=== PATIENT | female | born 1990 | race Asian ===

== ENCOUNTER 2017-11-02 16:59 | Emergency (ER) | payer OTHER ==
--- NOTE | 2017-11-02 17:24 | PDOC ---
Rapid Medical Evaluation Time Seen by Provider: 11/02/17 17:20 Medical Evaluation: Allergies Allergy/AdvReac Type Severity Reaction Status Date / Time No Known Allergies Allergy Verified 04/10/15 21:59 11/02/17 17:20 I have performed a brief in-person evaluation of this patient. The patient presents with a chief complaint of: lower abdomen and lower back pain x 10/29/17. Reports being diagnosed with uti, but has not yet started the antibiotics. , 17 weeks . No vaginal bleeding or discharge Pertinent physical exam findings are NAD even and unlabored breathing no cva tenderness I have ordered the following: urinalysis The patient will proceed to Ed for further evaluation
[2017-11-02 17:29] VITALS: BP 94/49; PULSE 78; TEMP 98.2; BMI 22.3
[2017-11-02 18:03] LABS: BASO % 0.2 % (0-2.0); EOS % 1.5 % (0-4.5); HEMATOCRIT 32.1 % (32.4-45.2); HEMOGLOBIN 10.6 GM/dL (10.7-15.3); LYMPH % 20.9 % (8-40); MCH 27.3 pg (25.7-33.7); MCHC 33.2 g/dl (32.0-36.0); MEAN CELL VOLUME 82.3 fl (80-96); MEAN PLT VOLUME 8.3 fl (7.5-11.1); MONO % 7.6 % (3.8-10.2); NEUT % 69.8 % (42.8-82.8); PLATELET COUNT 236 K/MM3 (134-434); RBC 3.89 M/mm3 (3.60-5.2); RDW 13.9 % (11.6-15.6)
[2017-11-02 18:08] LABS: URINE APPEARANCE CLEAR; URINE BILIRUBIN NEGATIVE (<2.0 mg/dL); URINE COLOR DKYELLOW; URINE GLUCOSE (UA) NEGATIVE (NEGATIVE); URINE KETONE NEGATIVE (NEGATIVE); URINE LEUK ESTERASE 1+ (NEGATIVE); URINE NITRITE NEGATIVE (NEGATIVE); URINE PROTEIN NEGATIVE (NEGATIVE); URINE UROBILINOGEN NEGATIVE mg/dL (0.2-1.0)
[2017-11-02 18:11] LABS: EPI CELLS FEW /HPF (FEW); URINE BACTERIA RARE /hpf (NONE SEEN); URINE MUCUS FEW
--- NOTE | 2017-11-02 18:40 | PDOC ---
History of Present Illness - General Chief Complaint: Pain Stated Complaint: STOMACH/BACK PAIN/16 WKS Time Seen by Provider: 11/02/17 17:20 - History of Present Illness Initial Comments: 11/02/17 18:40 I have performed a brief in-person evaluation of this patient. The patient presents with a chief complaint of: lower abdomen and lower back pain x 10/29/17. Reports being diagnosed with uti, but has not yet started the antibiotics. , 17 weeks . No vaginal bleeding or discharge Pertinent physical exam findings are NAD even and unlabored breathing no cva tenderness I have ordered the following: urinalysis The patient will proceed to Ed for further evaluation Past History - Past Medical History Allergies/Adverse Reactions: Allergies Allergy/AdvReac Type Severity Reaction Status Date / Time No Known Allergies Allergy Verified 11/02/17 17:22 Asthma: No Cancer: No Cardiac Disorders: No COPD: No Diabetes: No HTN: No Kidney Stones: Yes Seizures: No Thyroid Disease: No - Reproductive History (#): 1 Para: 0 Therapeutic (s) & number: No Spontaneous : 0 - Immunization History Immunization Up to Date: No - Suicide/Smoking/Psychosocial Hx Smoking History: Never smoked Have you smoked in the past 12 months: No Hx Alcohol Use: No Drug/Substance Use Hx: No Substance Use Type: None Hx Substance Use Treatment: No *Physical Exam - Vital Signs Last Vital Signs Temp Pulse Resp BP Pulse Ox 98.2 F 78 16 94/49 100 11/02/17 17:23 11/02/17 17:23 11/02/17 17:23 11/02/17 17:23 11/02/17 17:23 ED Treatment Course - LABORATORY CBC & Chemistry Diagram: 11/02/17 17:47 - ADDITIONAL ORDERS Additional order review: Laboratory Results 11/02/17 17:40 Urine Color Dkyellow Urine Appearance Clear Urine pH 5.0 Ur Specific [place] 1.025 Urine Protein Negative Urine Glucose (UA) Negative Urine Ketones Negative Urine Blood Negative Urine Nitrite Negative Urine Bilirubin Negative Urine Urobilinogen Negative Ur Leukocyte Esterase 1+ H Urine WBC (Auto) 8 Urine RBC (Auto) 2 Ur Epithelial Cells Few Urine Bacteria Rare Urine Mucus Few 11/02/17 17:47 RBC 3.89 MCV 82.3 MCHC 33.2 RDW 13.9 MPV 8.3 Neutrophils % 69.8 Lymphocytes % 20.9 D Monocytes % 7.6 Eosinophils % 1.5 D Basophils % 0.2 *DC/Admit/Observation/Transfer - Referrals Referrals: Naldo Hernandez MD [Primary Care Provider] - - Patient Instructions - Post Discharge Activity
--- NOTE | 2017-11-02 18:41 | PDOC ---
History of Present Illness - General Chief Complaint: Pain Stated Complaint: STOMACH/BACK PAIN/16 WKS Time Seen by Provider: 11/02/17 17:20 - History of Present Illness Initial Comments: 27 year old (17 weeks by US) presenting with lower abdominal cramping and lower back pain. She was carrying her child around on 10/27 and 15 then noticed some lower back pain the next day. The pain is sharp, lower and bilateral ; better with tylenol, pressure, and OTC pain patches. Her lower abdominal pain is a pulling sensation 5-6/100 at worse and started around while she was in [place] (10/09-10/23). The pain is not worse with sex or urination. Both her back and abdominal pains are worse with cough. She admits to a light cough for the past four days with generalized warmth but no objective temperature measurements at home. She does have positive sick contacts at home (everyone with similar quality and duration of cough). She has dailynausea and occasional vomiting since the start of this . Of note, she was called by her ObGyn ([facility]) and told she had a UTI from before her trip to [facility] but did not receive the message until recently so she hasn't recieved treatment just yet. Denies chest pain, SOB, diarrhea, constipation, headache, or other symptoms. 11/02/17 19:41 Past History - Past Medical History Allergies/Adverse Reactions: Allergies Allergy/AdvReac Type Severity Reaction Status Date / Time No Known Allergies Allergy Verified 11/02/17 17:22 Home Medications: Ambulatory Orders Nitrofurantoin Monohyd/M-Cryst [Macrobid -] 100 mg PO BID 5 Days #10 capsule Asthma: No Cancer: No Cardiac Disorders: No COPD: No Diabetes: No HTN: No Kidney Stones: Yes Seizures: No Thyroid Disease: No - Reproductive History (#): 1 Para: 0 Therapeutic (s) & number: No Spontaneous : 0 - Immunization History Immunization Up to Date: No - Suicide/Smoking/Psychosocial Hx Smoking History: Never smoked Have you smoked in the past 12 months: No Hx Alcohol Use: No Drug/Substance Use Hx: No Substance Use Type: None Hx Substance Use Treatment: No Review of Systems - Review of Systems Constitutional: Yes: Fever. No: Chills, Diaphoresis HEENTM: No: Recent change in vision, Double Vision Respiratory: Yes: Cough. No: Shortness of Breath, SOB at Rest Cardiac (ROS): No: Chest Pain, Edema, Lightheadedness ABD/GI: Yes: Nausea. No: Diarrhea, Poor Appetite, Vomiting : No: Burning, Dysuria, Discharge, Frequency, Hematuria Musculoskeletal: Yes: Back Pain Integumentary: No: Bruising, Change in Color, Lesions, Lumps Neurological: No: Headache, Numbness, Paresthesia Psychiatric: No: Anxiety, Depression Hematologic/Lymphatic: No: Anemia, Blood Clots *Physical Exam - Vital Signs Last Vital Signs Temp Pulse Resp BP Pulse Ox 98.2 F 78 16 94/49 100 11/02/17 17:23 11/02/17 17:23 11/02/17 17:23 11/02/17 17:23 11/02/17 17:23 - Physical Exam General Appearance: Yes: Nourished, Appropriately Dressed. No: Apparent Distress HEENT: positive: EOMI, XAVIER, Normal ENT Inspection, Normal Voice Neck: positive: Trachea midline, Normal Thyroid, Supple. negative: Tender, Rigid Respiratory/Chest: positive: Lungs Clear, Normal Breath Sounds. negative: Chest Tender, Respiratory Distress, Accessory Muscle Use Cardiovascular: positive: Regular Rhythm, Regular Rate Female Pelvic Exam: positive: normal external exam, cervical os closed, normal adnexa, normal size ovaries. negative: CMT, discharge, lesions Gastrointestinal/Abdominal: positive: Normal Bowel Sounds, Tender (slight pelvic tenderenss to deep palpation), Soft, Protuberent. negative: Flat, Distended, Guarding Lymphatic: negative: Adenopathy, Tenderness Musculoskeletal: positive: Normal Inspection. negative: CVA Tenderness Extremity: positive: Normal Capillary Refill, Normal Inspection, Normal Range of Motion, Pelvis Stable. negative: Tender Integumentary: positive: Normal Color, Dry, Warm Neurologic: positive: warper fixer II-XII NML intact, Fully Oriented, Alert, Normal Mood/ Affect, Normal Response, Motor Strength 5/5 ED Treatment Course - LABORATORY CBC & Chemistry Diagram: 11/02/17 17:47 - ADDITIONAL ORDERS Additional order review: Laboratory Results 11/02/17 17:40 Urine Color Dkyellow Urine Appearance Clear Urine pH 5.0 Ur Specific [place] 1.025 Urine Protein Negative Urine Glucose (UA) Negative Urine Ketones Negative Urine Blood Negative Urine Nitrite Negative Urine Bilirubin Negative Urine Urobilinogen Negative Ur Leukocyte Esterase 1+ H Urine WBC (Auto) 8 Urine RBC (Auto) 2 Ur Epithelial Cells Few Urine Bacteria Rare Urine Mucus Few 11/02/17 17:47 RBC 3.89 MCV 82.3 MCHC 33.2 RDW 13.9 MPV 8.3 Neutrophils % 69.8 Lymphocytes % 20.9 D Monocytes % 7.6 Eosinophils % 1.5 D Basophils % 0.2 Medical Decision Making - Medical Decision Making 27 year old female 17 weeks and history of nephrolithiasis presenting with lower back pain and lower abdominal pain for the past 2 weeks. Labs WNL with UA showing 8 WBC with 1+ leuk esterase. US showing viable 19 week IUP with HR 150 and bilateral nephrolithiasis (non-obstructing). Given acetaminophen and one dose of macrobid in ED. Will DC with macrobid 100 BID for 5 days. 11/02/17 22:44 *DC/Admit/Observation/Transfer Diagnosis at time of Disposition: Nephrolithiasis UTI (urinary tract infection) Qualifiers: Urinary tract infection type: site unspecified Hematuria presence: without hematuria Qualified Code(s): N39.0 - Urinary tract infection, site not specified Abdominal pain Qualifiers: Abdominal location: lower abdomen, unspecified Qualified Code(s): R10.30 - Lower abdominal pain, unspecified Back pain Qualifiers: Back pain location: low back pain Chronicity: acute Back pain laterality: bilateral Sciatica presence: without sciatica Qualified Code(s): M54.5 - Low back pain - Discharge Dispostion Disposition: HOME Condition at time of disposition: Improved Decision to Admit order: No - Prescriptions Prescriptions: Nitrofurantoin Monohyd/M-Cryst [Macrobid -] 100 mg PO BID 5 Days #10 capsule - Referrals Referrals: Naldo Hernandez MD [Primary Care Provider] - Jared Tapia MD [Staff Physician] - - Patient Instructions Printed Discharge Instructions: DI for Low Back Pain, DI for Urinary Tract Infection (UTI), DI for Kidney Stones Additional Instructions: You have an infection n your urine and stones in your kidneys. Please take your antibiotics twice a day with food for five days. Please return to the ED if you have worsening fevers, worsening pain, or cannot tolerate your medication. Also return if you have any new or worsening symptoms. Please follow up with your ObFlacaYn ([facility]) on Monday. - Post Discharge Activity
[2017-11-02] MEDS ORDERED: ACETAMINOPHEN 325 MG TABLET (FP) PO ONE (20:34)
[2017-11-02] MEDS ORDERED: ACETAMINOPHEN 325 MG TABLET (FP) ONE (20:49)
[2017-11-02] MEDS ORDERED: NITROFURANTOIN MACROCRYSTAL 50 MG CAPSULE (FP) PO SCH (22:15)
[2017-11-02] MEDS ORDERED: NITROFURANTOIN MACROCRYSTAL 50 MG CAPSULE (FP) ONE (22:27)
--- NOTE | 2017-11-02 22:49 | PDOC ---
Attending Attestation - Resident Resident Name: FelyEricdaliafco - ED Attending Attestation I have performed the following: I have examined & evaluated the patient, The case was reviewed & discussed with the resident, I agree w/resident's findings & plan, Exceptions are as noted - HPI HPI: 11/02/17 22:48 agree with residents HPI - Physicial Exam PE: 11/02/17 22:48 agree with residents PE - Medical Decision Making 11/02/17 22:50 27 years old presents with lower abdominal cramping low back discomfort Labs within normal limits. No fever no white count no evidence of [place] on ultrasound normal Limited OB ultrasound Patient with slight evidence of UTI we'll treat with Macrobid and have patient follow up with her primary care provider this week. Findings, need for follow-up and strict return instructions discussed with patient.
== END 2017-11-02 23:30 | disposition home or self-care (01) ==
LOC: JER 16:59
DX: O26.892 Other specified pregnancy related conditions, second trimester (principal); O23.32 Infections of other parts of urinary tract in pregnancy, second trimester; N20.0 Calculus of kidney; Z3A.17 17 weeks gestation of pregnancy
CPT/HCPCS: 36415; 76775-TC; 76815-TC; 81003; 81015; 84702; 85025; 87086; 99282-25

== ENCOUNTER 2018-03-27 19:50 | Inpatient (IN) | payer OTHER ==
[2018-03-27] MEDS: OXYTOCIN 20 UNITS in 0.9% NS 20 UNIT/1,000 ML INFUS.BAG IV SCH (20:20)
[2018-03-27] MEDS ORDERED: OXYTOCIN 20 UNITS in 0.9% NS 20 UNIT/1,000 ML INFUS.BAG IV ONE (20:31)
[2018-03-27] MEDS ORDERED: LIDOCAINE HCL 1% PRESERVATIVE FREE - 30ML VIAL ONE (20:36)
[2018-03-27] MEDS ORDERED: BUTORPHANOL TARTRATE 1 MG/ML VIAL ONE (20:37)
[2018-03-27] MEDS ORDERED: BUTORPHANOL TARTRATE 1 MG/ML VIAL IVPUSH ONE (20:45)
[2018-03-27 21:25] LABS: BASO % 0.2 % (0-2.0); EOS % 0.4 % (0-4.5); HEMATOCRIT 36.9 % (32.4-45.2); HEMOGLOBIN 12.1 GM/dL (10.7-15.3); LYMPH % 9.9 % (8-40); MCH 25.4 pg (25.7-33.7); MCHC 32.9 g/dl (32.0-36.0); MEAN CELL VOLUME 77.3 fl (80-96); MEAN PLT VOLUME 9.3 fl (7.5-11.1); MONO % 3.1 % (3.8-10.2); NEUT % 86.4 % (42.8-82.8); PLATELET COUNT 300 K/MM3 (134-434); RBC 4.77 M/mm3 (3.60-5.2); RDW 15.7 % (11.6-15.6); WHITE BLOOD COUNT 14.8 K/mm3 (4.0-10.0)
[2018-03-27 21:40] VITALS: BMI 27.8
[2018-03-27 21:47] LABS: ANION GAP 10 MMOL/L (8-16); BLOOD UREA NITROGEN 15 mg/dL (7-18); CALCIUM 9.4 mg/dL (8.5-10.1); CHLORIDE 103 mmol/L (98-107); CO2 23 mmol/L (21-32); CREATININE 0.5 mg/dL (0.55-1.3); GLUCOSE,RANDOM 72 mg/dL (74-106); POTASSIUM 4.3 mmol/L (3.5-5.1); SODIUM 136 mmol/L (136-145)
[2018-03-27] MEDS ORDERED: TUBERCULIN PPD 5 TU/0.1ML SYRINGE (IN PATIENT USE ONLY) ID ONE (22:45)
[2018-03-27 23:13] LABS: INR 0.92 (0.83-1.09); PROTHROMBIN TIME (PATIENT) 10.9 SEC (9.7-13.0)
[2018-03-27 23:16] LABS: ACTIVATED PTT 25.7 SECONDS (25.2-36.5)
[2018-03-27] MEDS ORDERED: BENZOCAINE 28 GM HEMORRHOIDAL OINTMENT TP PRN (23:37)
[2018-03-27] MEDS ORDERED: WITCH HAZEL 50% (TUCKS) 40 PAD/JAR PAD TP PRN (23:37)
[2018-03-27] MEDS ORDERED: BENZOCAINE 20% 57 GM BOTTLE TP PRN (23:37)
[2018-03-27] MEDS ORDERED: METHYLERGONOVINE MALEATE 0.2 MG/1 ML AMP IM PRN (23:37)
[2018-03-27] MEDS ORDERED: BISACODYL 10 MG SUPP.RECT RC PRN (23:37)
--- NOTE | 2018-03-27 23:41 | PN ---
Delivery - Delivery Vaginal Delivery: No Problems, Spontaneous Type of Anesthesia: Local Episiotomy/Laceration: None, Vaginal Extension/lac, 2nd degree EBL (cc): 300 Delivery, Single - Stages of Labor Date 1st Stage Initiatied: 03/27/18 Time 1st Stage Initiated: 13:00 Date of Delivery: 03/27/18 Time of Delivery: 18:55 Time Placenta Delivered: 20:35 Placenta: Yes: Spontaneous, Normal Configuration - Condition of Infant Stock Handler/Animal Ecologist Present: No Infant Gender: Female Weight: 2.977 kg Total Hours ROM (Hrs/Mins): 1hr.45 - Home Delivery on Admit Total Score: 10 - Feeding Plan Initial Plan: Elected not to breastfeed exclusively throughout hospitalization Benefits of Exclusively reinforced: Yes
[2018-03-27] MEDS ORDERED: OXYTOCIN 20 UNITS in 0.9% NS 20 UNIT/1,000 ML INFUS.BAG IV SCH (23:45)
--- NOTE | 2018-03-27 23:53 | HP ---
Past Medical History - Primary Care Physician PCP:: Teto Gavin - Admission Chief Complaint: 28yo with at EGA 39w5d admitted after pt delivered a baby at home by EMS, with placenta in situ. 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: Alzheimer's, CVA, Dementia, Migraine, Multiple Sclerosis, Peripheral Neuropathy, Parkinson's, Seizure, Syncope, TIA, Vertigo, Other Cardiovascular: No: AFIB, Aneurysm, Aortic Insufficiency, Aortic Stenosis, CAD, CHF, Deep Vein Thrombosis, HTN, Hyperlipdemia, AL, Mitral Insufficiency, Mitral Stenosis, Murmur, Pulmonary Hypertension, Other Pulmonary: No: Asthma, Bronchitis, Cancer, COPD, O2 Dependent, Pneumonia, Previously Intubated, Pulmonary Embolus, Pulmonary Fibrosis, Sleep Apnea, Other Gastrointestinal: No: Ascites, Cancer, Constipation, Crohn's Disease, Diverticulitis, Diverticulosis, Esophageal Varices, Gastritis, GERD, GI Bleed, Hemorrhoids, Hiatal Hernia, Inflamatory Bowel Disease, Irritable Bowel Disease, Pancreatitis, Peptic Ulcer Disease, Ulcerative Colitis, Other Hepatobiliary: No: Cirrhosis, Cholelithiasis, Cholecystitis, Choledocholithiasis , Hepatitis A, Hepatitis B, Hepatitis C, Other Renal/: Yes: Renal Calculi ...: 2 ...Para: 1 ...Term: 1 ...LMP: 06/25/17 ... Weeks Gestation by Dates: 39.5 ...EDC by Sono: 03/29/18 Heme/Onc: No: Anemia, B12 Deficiency, Bleeding Disorder, Cancer, Current Chemotherapy, Current Radiation Therapy, Hemochromatosis, Hypercoaguable State, Myeloproliferative Synd, Sickle Cell Disease, Sickle Cell Trait, Thrombocytopenia, Other Infectious Disease: No: AIDS, C-Diff, Herpes Zoster, HIV, MRSA, STD's, Tuberculosis, VREF, Other Psych: No: Addictions, Anxiety, Bipolar, Depression, Panic, Psychosis, Schizophrenia, Other Musculoskeletal: No: Bursitis, Chronic low back pain, Hemiparesis, Hemiplegia, Osteoarthritis, Paraplegia, Other Rheumatology: No: Fibromyalgia, Gout, Lupus, Rheumatoid Arthritis, Sarcoidosis, Vasculitis, Other ENT: No: Allergic Rhinitis, Sinusitis, Other Endocrine: No: Tyrone's Disease, Reynolds's Disease, Diabetes Insipidus, Diabetes Mellitus, Hyperparathyroidism, Hyperthyroidism, Hypothyroidism, Osteopenia, SIADH, Other Dermatology: No: Basal Cell, Cellulitis, Eczema, Melanoma, Psoriasis, Squamous Cell, Other - Past Surgical History Past Surgical History: Yes: None Hx Myomectomy: No Hx Transabdominal Cerclage: No - Smoking History Smoking history: Never smoked Have you smoked in the past 12 months: No - Alcohol/Substance Use Hx Alcohol Use: No History of Substance Use: reports: None - Social History ADL: Independent 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 History of Recent Travel: No Home Medications - Allergies Allergies/Adverse Reactions: Allergies Allergy/AdvReac Type Severity Reaction Status Date / Time No Known Allergies Allergy Verified 11/02/17 17:22 Family Disease History - Family Disease History Family Disease History: Diabetes: Mother Review of Systems - Review of Systems Constitutional: reports: No Symptoms, Other (s/p , still has contractions) Eyes: reports: No Symptoms HENT: reports: No Symptoms Neck: reports: No Symptoms Cardiovascular: reports: No Symptoms Respiratory: reports: No Symptoms Gastrointestinal: reports: No Symptoms Genitourinary: reports: No Symptoms Breasts: reports: No Symptoms Reported Musculoskeletal: reports: No Symptoms Integumentary: reports: No Symptoms Neurological: reports: No Symptoms Endocrine: reports: No Symptoms Hematology/Lymphatic: reports: No Symptoms Psychiatric: reports: No Symptoms Pain Intensity: 4 Physical Exam - Maternity Vital Signs: Vital Signs Temperature 98.4 F 03/27/18 22:40 Pulse Rate 67 03/27/18 22:40 Respiratory Rate 18 03/27/18 22:40 Blood Pressure 110/60 03/27/18 22:40 O2 Sat by Pulse Oximetry (%) 99 03/27/18 20:45 Constitutional: Yes: Well Nourished, No Distress, Calm Eyes: Yes: WNL, Conjunctiva Clear HENT: Yes: WNL, Atraumatic, Normocephalic Neck: Yes: WNL, Supple, Trachea Midline Cardiovascular: Yes: WNL, Regular Rate and Rhythm Lungs: Clear to auscultation, Normal air movement Breast(s): Yes: WNL - Vaginal Exam/OB Vaginal Bleediing: Light Speculum Exam: No - Physical Exam Musculoskeletal: Yes: WNL Extremities: Yes: WNL Edema: Yes Edema: LLE: Trace, RLE: Trace Integumentary: Yes: WNL Deep Tendon Reflex Grade: Normal +2 ...Motor Strength: WNL Psychiatric: Yes: WNL, Alert, Oriented - Labs Lab Results: CBC, BMP 03/27/18 20:30 03/27/18 20:30 Hemorrhage Risk Assessment - Risk Factors Medium Risk Factors: Yes: None High Risk Factors: Yes: None Risk Score: 1 Risk Level: Medium Risk Assessment/Plan 28yo with at EGA 39w5d admitted after pt delivered a baby at home by EMS, with placenta in situ. The baby is well. The placenta was delivered spontaneously and w/o complications. 2nd degree perineal laceration repaired.
[2018-03-28] MEDS: ACETAMINOPHEN 325 MG TABLET (FP) PO PRN ×3 (01:16→21:20)
[2018-03-28] MEDS: IBUPROFEN 600 MG TABLET (FP) PO PRN ×3 (01:17→21:19)
[2018-03-28] MEDS: OXYTOCIN 20 UNITS in 0.9% NS 20 UNIT/1,000 ML INFUS.BAG IV SCH (01:18)
--- NOTE | 2018-03-28 01:57 | RAPID ---
Physical Examination Vital Signs: Vital Signs Temperature 98.4 F 03/27/18 22:40 Pulse Rate 67 03/27/18 22:40 Respiratory Rate 18 03/27/18 22:40 Blood Pressure 110/60 03/27/18 22:40 O2 Sat by Pulse Oximetry (%) 99 03/27/18 20:45 Labs: CBC, BMP 03/27/18 20:30 03/27/18 20:30 Rapid Response - Rapid Response Assessment: Rapid response called at 3W. Patient was reported to have right-sided chest pressure, nonradiating, which lasted a few minutes. Denies any SOB, and chest pain has already resolved when rapid team arrived. Patient has no significant past medical history, recently had at home, and was subsequently BIBEMS to the hospital. General: awake, alert, oriented, NAD VS:121/76, DE 95, RR 15, O2 sat 98% Heart: regular rate and rhythm, no murmurs Lungs: clear to auscultation bilaterally Ext: no edema Chest pain, rule out ACS, PE EKG: NSR, no ST-T wave changes, HR 72 Trops CBC, BMP Dr. Gavin made aware Chest CTA ordered.
[2018-03-28 02:36] LABS: BASO % 0.3 % (0-2.0); EOS % 0.5 % (0-4.5); HEMATOCRIT 32.5 % (32.4-45.2); HEMOGLOBIN 10.8 GM/dL (10.7-15.3); LYMPH % 11.9 % (8-40); MCH 25.5 pg (25.7-33.7); MCHC 33.1 g/dl (32.0-36.0); MEAN PLT VOLUME 8.4 fl (7.5-11.1); MONO % 3.3 % (3.8-10.2); PLATELET COUNT 269 K/MM3 (134-434); RBC 4.22 M/mm3 (3.60-5.2); RDW 15.5 % (11.6-15.6); WHITE BLOOD COUNT 14.2 K/mm3 (4.0-10.0)
[2018-03-28 02:58] LABS: ANION GAP 6 MMOL/L (8-16); BLOOD UREA NITROGEN 10 mg/dL (7-18); CALCIUM 8.1 mg/dL (8.5-10.1); CHLORIDE 104 mmol/L (98-107); CO2 26 mmol/L (21-32); CREATININE 0.6 mg/dL (0.55-1.3); GLUCOSE,RANDOM 153 mg/dL (74-106); POTASSIUM 3.5 mmol/L (3.5-5.1); SODIUM 136 mmol/L (136-145)
[2018-03-28 06:24] LABS: BASO % 0.1 % (0-2.0); EOS % 0.5 % (0-4.5); HEMATOCRIT 31.8 % (32.4-45.2); HEMOGLOBIN 10.4 GM/dL (10.7-15.3); LYMPH % 12.9 % (8-40); MCH 25.2 pg (25.7-33.7); MCHC 32.9 g/dl (32.0-36.0); MEAN CELL VOLUME 76.5 fl (80-96); MEAN PLT VOLUME 8.7 fl (7.5-11.1); MONO % 5.5 % (3.8-10.2); PLATELET COUNT 242 K/MM3 (134-434); RBC 4.15 M/mm3 (3.60-5.2); RDW 15.7 % (11.6-15.6); WHITE BLOOD COUNT 14.2 K/mm3 (4.0-10.0)
[2018-03-28] MEDS: PRENATAL VITAMINS W/ FOLIC ACID TABLET (FP) PO SCH (09:45)
--- NOTE | 2018-03-28 12:24 | EKG ---
Test Reason : Blood Pressure : / mmHG Vent. Rate : 072 BPM Atrial Rate : 072 BPM P-R Int : 124 ms QRS Dur : 086 ms QT Int : 396 ms P-R-T Axes : 014 073 036 degrees QTc Int : 433 ms NORMAL SINUS RHYTHM NORMAL ECG WHEN COMPARED WITH ECG OF 28-MAR-2018 01:58, PREVIOUS ECG HAS UNDETERMINED RHYTHM, NEEDS REVIEW Confirmed by JOCELYN COLLADO, JOAQUIN ([id number]) on 03/28/2018 12:23:35 PM Referred By: Confirmed By:JOAQUIN BANKS MD
--- NOTE | 2018-03-28 16:41 | PN ---
Post Progress Note - Subjective Subjective: Pt w/o complaints. She has no pain, no chest pain, no SOB. Post Day: 1 Type of Delivery: Vital Signs: Vital Signs Temperature 97.8 F 03/28/18 14:00 Pulse Rate 76 03/28/18 14:00 Respiratory Rate 20 03/28/18 14:00 Blood Pressure 115/62 03/28/18 14:00 O2 Sat by Pulse Oximetry (%) 99 03/27/18 20:45 Breast Exam: Yes: Soft Uterus: Yes: Fundus Firm, Fundus below umbilicus, Non-tender Abdomen/GI: Yes: Abdomen soft, Passing flatus, Tolerating PO Lochia: Yes: Rubra Lochia, amount: Small Extremities: Yes: Calves non-tender Perineum: Yes: Laceration (Repair is intact) Activity: Ambulating - Labs Labs: CBC WBC 14.2 K/mm3 (4.0-10.0) H 03/28/18 05:54 RBC 4.15 M/mm3 (3.60-5.2) 03/28/18 05:54 Hgb 10.4 GM/dL (10.7-15.3) L 03/28/18 05:54 Hct 31.8 % (32.4-45.2) L 03/28/18 05:54 MCV 76.5 fl (80-96) L 03/28/18 05:54 MCH 25.2 pg (25.7-33.7) L 03/28/18 05:54 MCHC 32.9 g/dl (32.0-36.0) 03/28/18 05:54 RDW 15.7 % (11.6-15.6) H 03/28/18 05:54 Plt Count 242 K/MM3 (134-434) 03/28/18 05:54 MPV 8.7 fl (7.5-11.1) 03/28/18 05:54 Absolute Neuts (auto) 11.5 K/mm3 (1.5-8.0) H 03/28/18 05:54 Neutrophils % 81.0 % (42.8-82.8) 03/28/18 05:54 Lymphocytes % 12.9 % (8-40) 03/28/18 05:54 Monocytes % 5.5 % (3.8-10.2) 03/28/18 05:54 Eosinophils % 0.5 % (0-4.5) 03/28/18 05:54 Basophils % 0.1 % (0-2.0) 03/28/18 05:54 Nucleated RBC % 0 % (0-0) 03/28/18 05:54 Assessment/Plan 28yo P2 s/p , doing well stable, afebrile. Asymptomatic for anemia. care instructions reviewed. Continue routine care. RhoGam ordered. Ambulation encouraged Discharge instruction reviewed.
--- NOTE | 2018-03-28 16:52 | DS ---
Physical Exam-GUIDANCE AND CONTROL SYSTEM ENGINEER Vital Signs: Vital Signs Temperature 97.8 F 03/28/18 14:00 Pulse Rate 76 03/28/18 14:00 Respiratory Rate 20 03/28/18 14:00 Blood Pressure 115/62 03/28/18 14:00 O2 Sat by Pulse Oximetry (%) 99 03/27/18 20:45 Constitutional: Yes: Well Nourished, No Distress, Calm Eyes: Yes: WNL, Conjunctiva Clear, EOM Intact HENT: Yes: WNL, Atraumatic, Normocephalic Neck: Yes: WNL, Supple, Trachea Midline Cardiovascular: Yes: WNL, Regular Rate and Rhythm Respiratory: Yes: WNL, Regular, CTA Bilaterally Gastrointestinal: Yes: WNL, Normal Bowel Sounds, Soft ...Rectal Exam: Yes: Deferred Renal/: Yes: WNL Internal Exam Deferred: Yes ....Post : Yes: Uterus firm, Uterus non-tender, Slight lochia rubra Breast(s): Yes: WNL Musculoskeletal: Yes: WNL Extremities: Yes: WNL Edema: Yes Edema: LLE: Trace, RLE: Trace Integumentary: Yes: WNL Neurological: Yes: WNL, Alert, Oriented ...Motor Strength: WNL Psychiatric: Yes: WNL, Alert, Oriented Labs: CBC, BMP 03/28/18 05:54 03/28/18 02:20 Delivery - Delivery Vaginal Delivery: No Problems, Spontaneous Type of Anesthesia: Local Episiotomy/Laceration: None, Vaginal Extension/lac, 2nd degree EBL (cc): 300 Delivery, Single - Stages of Labor Date 1st Stage Initiatied: 03/27/18 Time 1st Stage Initiated: 13:00 Date of Delivery: 03/27/18 Time of Delivery: 18:55 Time Placenta Delivered: 20:35 Placenta: Yes: Spontaneous, Normal Configuration - Condition of Recovery Collector/Review Manager Present: No Infant Gender: Female Weight: 2.977 kg Total Hours ROM (Hrs/Mins): 1hr.45 - Home Delivery on Admit Total Score: 10 - [place] Feeding Plan Initial Plan: Elected not to breastfeed exclusively throughout hospitalization Benefits of Exclusively reinforced: Yes Discharge Summary Reason For Visit: ADMIT DELIVERY Spontaneous labor at 38wks Procedures: Principal: Delivery of placenta Other Procedures: Repair of 2nd degree perineal OB laceration Hospital Course: Normal recovery - Instructions Diet, Activity, Other Instructions: Physical activity Resume your normal everyday activity as tolerated no heavy lifting or exercise until seen by your surgeon. You may walk unlimited [place] of and climb stairs. You may resume driving the car when you feel safe and comfortable behind the wheel. No sexual activity as instructed. Wound care If you have a bandage, leave it on, and keep dry for 48-72 hours. After that time discard the outer bandage. If they are tapes on the skin under the out of bandage leave them in place. They will peel off in the next 7 to 10 days. Do Not Peel them off. You may shower the day after surgery. If there are tapes present on the skin, you may shower over them. Diet There are no dietary restrictions. Eat healthy, high-fiber foods. Drink 6 to 8 glasses of liquid each day. This will assist in keeping your bowels are regular. Pain management You may take Tylenol or acetaminophen or Ibuprofen (for example, Motrin, Advil etc.) from my pain prescription medication is ordered should be taken as prescribed for moderate to severe pain. Call MD for any of the following: Severe pain not relieved by medication Fever of 101 or higher Excessive bleeding or drainage on dressing Inability to urinate Referrals: Jared Tapia MD [Staff Physician] - Disposition: HOME
--- NOTE | 2018-03-28 18:54 | PN ---
Progress Note (short form) - Note Progress Note: 28 year old female developed pleuritic Left sided chest pain post-, seen by hospitalist team overnight and work-up for PE initiated. Patient refused CTA Chest. Currently she claims that her chest pain has resolved. She denies any shortness of breath, cough, sputum, hemoptysis, fever, chills. She declines any further investigations including CTA Chest to exclude PE despite counselling. She is afebrile, Hemoodynamically Stable. SpO2 98% RA. Comfortable. Last Vital Signs Temp Pulse Resp BP Pulse Ox 98 F 68 20 110/63 98 03/28/18 18:00 03/28/18 18:49 03/28/18 18:00 03/28/18 18:00 03/28/18 18:49 HEENT - Atraumatic, Normocephalic. Heart -S1, S2, RRR Lungs - clear to auscultation, no crackles/wheeze. Abdomen - Soft, non-tender. Bowel Sounds normal. Extremities - no edema. No calf tenderness. Laboratory Results - last 24 hr 03/27/18 03/27/18 03/27/18 20:30 20:30 20:30 WBC 14.8 H RBC 4.77 Hgb 12.1 Hct 36.9 MCV 77.3 L MCH 25.4 L MCHC 32.9 RDW 15.7 H D Plt Count 300 D MPV 9.3 D Absolute Neuts (auto) 12.8 H Neutrophils % 86.4 H D Lymphocytes % 9.9 D Monocytes % 3.1 L Eosinophils % 0.4 Basophils % 0.2 Nucleated RBC % 0 PT with INR 10.90 INR 0.92 PTT (Actin FS) 25.7 Sodium 136 Potassium 4.3 Chloride 103 Carbon Dioxide 23 Anion Gap 10 BUN 15 Creatinine 0.5 L Creat Clearance w eGFR > 60 Random Glucose 72 L Calcium 9.4 Troponin I RPR Titer Blood Type Antibody Screen Antibody Identification Antigen Identification Screen Baby's Blood Type Unit Expiration Date 03/27/18 03/27/18 03/27/18 20:30 20:30 22:10 WBC RBC Hgb Hct MCV MCH MCHC RDW Plt Count MPV Absolute Neuts (auto) Neutrophils % Lymphocytes % Monocytes % Eosinophils % Basophils % Nucleated RBC % PT with INR INR PTT (Actin FS) Sodium Potassium Chloride Carbon Dioxide Anion Gap BUN Creatinine Creat Clearance w eGFR Random Glucose Calcium Troponin I RPR Titer Nonreactive Blood Type A NEGATIVE Antibody Screen Positive Antibody Identification D Antigen Identification No Result Required. Screen Negative Baby's Blood Type Ab positive Unit Expiration Date [id number] 03/28/18 03/28/18 03/28/18 02:20 02:20 05:54 WBC 14.2 H 14.2 H RBC 4.22 4.15 Hgb 10.8 10.4 L Hct 32.5 31.8 L MCV 77.0 L 76.5 L MCH 25.5 L 25.2 L MCHC 33.1 32.9 RDW 15.5 15.7 H Plt Count 269 242 MPV 8.4 8.7 Absolute Neuts (auto) 11.9 H 11.5 H Neutrophils % 84.0 H 81.0 Lymphocytes % 11.9 D 12.9 Monocytes % 3.3 L 5.5 Eosinophils % 0.5 0.5 Basophils % 0.3 0.1 Nucleated RBC % 0 0 PT with INR INR PTT (Actin FS) Sodium 136 Potassium 3.5 Chloride 104 Carbon Dioxide 26 Anion Gap 6 L BUN 10 Creatinine 0.6 Creat Clearance w eGFR > 60 Random Glucose 153 H Calcium 8.1 L Troponin I < 0.02 RPR Titer Blood Type Antibody Screen Antibody Identification Antigen Identification Screen Baby's Blood Type Unit Expiration Date Current Medications Generic Name Dose Route Start Last Admin Trade Name Freq PRN Reason Stop Dose Admin Acetaminophen 650 mg 03/27/18 23:37 03/28/18 09:44 Tylenol - PO 650 mg Q3H PRN Administration PAIN LEVEL 1-5 Benzocaine 1 spray 03/27/18 23:37 Americaine 20% [place] - TP PRN PRN PAIN Benzocaine 1 applic 03/27/18 23:37 Americaine Ointment - TP PRN PRN PAIN Bisacodyl 10 mg 03/27/18 23:37 Dulcolax Suppository - RC PRN PRN CONSTIPATION Oxytocin/Sodium Chloride 20 unit in 1,000 mls @ 125 mls/hr 03/27/18 20:40 01:18 Normal Saline+20 Units Oxytocin - IV 125 mls/hr ASDIR JULIO CESAR Administration Ibuprofen 600 mg 03/27/18 23:37 03/28/18 09:43 Motrin - PO 600 mg Q4H PRN Administration PAIN LEVEL 6-10 Methylergonovine Maleate 0.2 mg 03/27/18 23:37 Methergine Injection - IM Q4H PRN EXCESSIVE BLEEDING (L&D) Multivit/Folic Acid/Iron 1 tab 03/28/18 10:00 03/28/18 09:45 Vitamins (Sjr) - PO Not Given DAILY JULIO CESAR Senna/Docusate Sodium 2 tablet 03/28/18 22:00 Pericolace - PO HS PRN CONSTIPATION [place]/Glycerin 1 pad 03/27/18 23:37 Tucks Pads - TP PRN PRN PAIN ASSESSMENT Medicine Service will sign off as patient has no further chest pain and is declining any further investigations including CTA to exclude PE. Visit type - Emergency Visit Emergency Visit: Yes ED Registration Date: 03/27/18 Care time: The patient presented to the Emergency Department on the above date and was hospitalized for further evaluation of their emergent condition. - New Patient This patient is new to me today: Yes Date on this admission: 03/28/18 - Critical Care Critical Care patient: No - Discharge Referral Referred to [facility] Med P.C.: No
[2018-03-28] MEDS ORDERED: SENNOSIDES/DOCUSATE COMBO (SENNA PLUS) TABLET (UD) PO PRN (22:00)
[2018-03-29] MEDS: ACETAMINOPHEN 325 MG TABLET (FP) PO PRN (06:39)
[2018-03-29] MEDS: IBUPROFEN 600 MG TABLET (FP) PO PRN (06:39)
--- NOTE | 2018-03-29 06:55 | PN ---
Post Progress Note - Subjective Subjective: Patient without acute complaints. Reports tolerating oral intake without nausea or vomiting. Ambulating without dizziness. Denies fevers or chills. Pain well controlled with oral pain medication. without difficulty. Passing flatus. Post Day: 2 Type of Delivery: Vital Signs: Vital Signs Temperature 97.8 F 03/28/18 22:00 Pulse Rate 72 03/28/18 22:00 Respiratory Rate 18 03/28/18 22:00 Blood Pressure 121/68 03/28/18 22:00 O2 Sat by Pulse Oximetry (%) 99 03/28/18 22:00 Breast Exam: Yes: Soft Uterus: Yes: Fundus Firm, Fundus @ umbilicus Abdomen/GI: Yes: Abdomen soft, Passing flatus, Tolerating PO. No: Abdominal Distention, Tender Lochia: Yes: Serosa Lochia, amount: Small Extremities: Yes: Calves non-tender. No: Edema Perineum: Yes: Laceration Activity: Ambulating - Labs Labs: CBC WBC 14.2 K/mm3 (4.0-10.0) H 03/28/18 05:54 RBC 4.15 M/mm3 (3.60-5.2) 03/28/18 05:54 Hgb 10.4 GM/dL (10.7-15.3) L 03/28/18 05:54 Hct 31.8 % (32.4-45.2) L 03/28/18 05:54 MCV 76.5 fl (80-96) L 03/28/18 05:54 MCH 25.2 pg (25.7-33.7) L 03/28/18 05:54 MCHC 32.9 g/dl (32.0-36.0) 03/28/18 05:54 RDW 15.7 % (11.6-15.6) H 03/28/18 05:54 Plt Count 242 K/MM3 (134-434) 03/28/18 05:54 MPV 8.7 fl (7.5-11.1) 03/28/18 05:54 Absolute Neuts (auto) 11.5 K/mm3 (1.5-8.0) H 03/28/18 05:54 Neutrophils % 81.0 % (42.8-82.8) 03/28/18 05:54 Lymphocytes % 12.9 % (8-40) 03/28/18 05:54 Monocytes % 5.5 % (3.8-10.2) 03/28/18 05:54 Eosinophils % 0.5 % (0-4.5) 03/28/18 05:54 Basophils % 0.1 % (0-2.0) 03/28/18 05:54 Nucleated RBC % 0 % (0-0) 03/28/18 05:54 Assessment/Plan 28 yo PPD # 2 s/p extramural , afebrile, vital signs stable, doing well 1. Patient stable for discharge home today. 2. Patient encouraged to contact MD for: - Severe pain not controlled by oral pain medication - Fevers or chills - Nausea or vomiting, intolerance of oral intake 3. Patient to follow up in office in 4-6 weeks for visit
[2018-03-29 08:44] VITALS: BP 118/80; PULSE 73; TEMP 97.9
[2018-03-29] MEDS: PRENATAL VITAMINS W/ FOLIC ACID TABLET (FP) PO SCH (09:58)
--- NOTE | 2018-04-04 15:44 | PATH ---
Surgical Pathology Report Patient Name: JOSEPH STANFORD [facility]. Rec. #: [id number] /Age/Gender: 1990 (Age: 28) / F Account: [id number] Location: [facility] OBS/SAW MAN Taken: 03/27/2018 Received: 03/28/2018 Reported: 04/04/2018 Physicians: Teto Gavin M.D. Specimen(s) Received PLACENTA Clinical History , 39.2 weeks History of kidney stones with this Final Diagnosis PLACENTA, NORMAL SPONTANEOUS VAGINAL DELIVERY: 338 G THIRD TRIMESTER PLACENTA WITH TRIVASCULAR UMBILICAL CORD, FOCAL ACUTE MILD PHLEBITIS, AND MILD ACUTE CHORIOAMNIONITIS. Electronically Signed Alba Roman M.D. Gross Description The specimen is received fresh labeled placenta and is a 338 gram, 19.0 x 15.0 x 2.4 cm. placenta with attached membranes and umbilical cord. The attached membranes are hua, translucent with focal opacities and insert marginally. The umbilical cord measures 36 cm. in length and averages 0.8 cm. in diameter. The cord inserts eccentrically, 5.5 cm. to the nearest margin. No true knots or strictures are identified. Cut surface of the umbilical cord reveals 3 vessels. The surface is rowe-blue with minimal fibrin deposition and appropriate caliber vessels. The maternal surface is red-brown with focal defects. Sectioning reveals red-brown, spongy parenchyma. No lesions are identified. Languages And Literature Instructor sections are submitted in three cassettes as follows: 1- membrane rolls and umbilical cord; 2-3- full thickness sections of placenta. /04/03/2018 [facility]04/03/2018
== END 2018-03-29 12:50 | disposition home or self-care (01) | DRG 769 ==
LOC: JLDR 19:50 → J3W 22:40
PROVIDERS: ADMIT Obstetrics & Gynecology; ATTEND Obstetrics & Gynecology
PROC: 0KQM0ZZ Repair Perineum Muscle, Open Approach (ICD-10-PCS; principal; 2018-03-27)
DX: O90.89 Other complications of the puerperium, not elsewhere classified (principal); O70.1 Second degree perineal laceration during delivery; R07.89 Other chest pain; Z37.0 Single live birth; Z3A.39 39 weeks gestation of pregnancy; Z83.3 Family history of diabetes mellitus
CPT/HCPCS: 36415; 59409; 71046-TC-FY; 80048; 84484; 85025; 85461; 85610; 85730; 86593; 86850; 86870; 86900; 86901; 86902; 86999; 88307-TC; 93005; 93010